=== PATIENT | male | born 1965 | race Caucasian/White ===

== ENCOUNTER 2018-03-15 10:37 | Emergency (ER) | payer OTHER ==
[~2018-03-15] VITALS: Ht 185.4 cm; Wt 166.5 kg
[2018-03-15] MEDS ORDERED: FLUCONAZOLE 100 MG TABLET. PO ONE (11:00)
[2018-03-15] MEDS ORDERED: IV NORMAL SALINE 1,000ML 1,000 ML IV ONE (11:00)
--- NOTE | 2018-03-15 11:04 | ED.ADGEN ---
Past History Past Medical History: No Pertinent History Past Surgical History: No Surgical History Smoking: Non-smoker Alcohol Use: None Drug Use: None Adult General Chief Complaint Chief Complaint Dysuria and recurrent balanitis HPI HPI The patient states he was diagnosed with balanitis and Bob in 2013. Since then, he's had recurrent episodes of balanitis last of which resolved year ago. Three weeks ago, he noted onset of progressive discharge and irritation to his foreskin of his penis. Over the last week, he's had dysuria where his urine duarte his foreskin. Denies history of diabetes. He denies any polyuria or polydipsia. He denies any fevers. Review of Systems Review of Systems Constitutional: Denies fever or chills Eyes: Denies change in visual acuity, redness, or eye pain HENT: Denies nasal congestion or sore throat Respiratory: Denies cough or shortness of breath Cardiovascular: Denies chest pain or palpitations GI: Denies abdominal pain, nausea, vomiting, bloody stools or diarrhea : With dysuria, no hematuria Musculoskeletal: Denies back pain or joint pain Integument: Denies rash or skin lesions Neurologic: Denies headache, focal weakness or sensory changes Endocrine: Denies polyuria or polydipsia All other systems were reviewed and found to be within normal limits, except as documented in this note. Current Medications Current Medications Current Medications Medications (Trade) Dose Ordered Sig/Mckay Start Time Stop Time Status Last Admin Dose Admin Fluconazole (Diflucan) 200 mg 1X ONCE 03/15/18 11:00 03/15/18 11:03 DC 03/15/18 11:26 200 MG Sodium Chloride 1,000 ml @ 1,000 mls/hr 1X ONCE 03/15/18 11:00 03/15/18 11:59 DC 03/15/18 11:26 1,000 MLS/HR Allergies Allergies Allergies Coded Allergies Type Severity Reaction Last Updated Verified Penicillins Allergy Unknown 03/15/18 Yes codeine Allergy Unknown 03/15/18 Yes Physical Exam Physical Exam Constitutional: Well developed, well nourished, no acute distress, non-toxic appearance. Morbidly obese HENT: Normocephalic, atraumatic, bilateral external ears normal, oropharynx moist, no oral exudates, nose normal. Eyes: PERRLA, EOMI, conjunctiva normal, no discharge. Neck: Normal range of motion, no tenderness, supple, no stridor. Cardiovascular:Heart rate regular rhythm, no murmur Lungs & Thorax: Bilateral breath sounds clear to auscultation Abdomen: Bowel sounds normal, soft, no tenderness, no masses, no pulsatile masses. Skin: Warm, dry, no erythema, no rash. : White discharge with cracking of the foreskin of his penis. Foreskin is retractable. No scrotal tenderness, erythema, warmth, induration or swelling. There is no swelling, erythema, warmth, induration or tenderness on the penile shaft or perineal area. Back: No tenderness, no CVA tenderness. Extremities: No tenderness, no cyanosis, no clubbing, ROM intact, no edema. Neurologic: Alert and oriented X 3, normal motor function, normal sensory function, no focal deficits noted. Psychologic: Affect normal, judgement normal, mood normal. Current Patient Data Vital Signs Vital Signs Date Time Temp Pulse Resp B/P (MAP) Pulse Ox O2 Delivery O2 Flow Rate FiO2 03/15/18 13:27 90 18 127/76 (93) 98 Room Air 03/15/18 10:37 98.3 Lab Results Laboratory Tests Test 03/15/18 11:18 03/15/18 12:10 White Blood Count 8.8 x10^3/uL (4.0-11.0) Red Blood Count 5.23 x10^6/uL (4.30-5.70) Hemoglobin 14.5 g/dL (13.0-17.5) Hematocrit 43.4 % (39.0-53.0) Mean Corpuscular Volume 83 fL (79-100) Mean Corpuscular Hemoglobin 28 pg (25-35) Mean Corpuscular Hemoglobin Concent 34 g/dL (31-37) Red Cell Distribution Width 15.4 % (11.5-14.5) H Platelet Count 260 x10^3/uL (140-400) Neutrophils (%) (Auto) 70 % (31-73) Lymphocytes (%) (Auto) 20 % (24-48) L Monocytes (%) (Auto) 4 % (0-9) Eosinophils (%) (Auto) 5 % (0-3) H Basophils (%) (Auto) 1 % (0-3) Neutrophils # (Auto) 6.2 x10^3uL (1.8-7.7) Lymphocytes # (Auto) 1.8 x10^3/uL (1.0-4.8) Monocytes # (Auto) 0.4 x10^3/uL (0.0-1.1) Eosinophils # (Auto) 0.4 x10^3/uL (0.0-0.7) Basophils # (Auto) 0.1 x10^3/uL (0.0-0.2) Sodium Level 134 mmol/L (136-145) L Potassium Level 4.1 mmol/L (3.5-5.1) Chloride Level 101 mmol/L (98-107) Carbon Dioxide Level 27 mmol/L (21-32) Anion Gap 6 (6-14) Blood Urea Nitrogen 13 mg/dL (8-26) Creatinine 1.2 mg/dL (0.7-1.3) Estimated GFR (Cockcroft-Gault) 62.9 BUN/Creatinine Ratio 11 (6-20) Glucose Level 249 mg/dL (70-99) H Calcium Level 8.5 mg/dL (8.5-10.1) Total Bilirubin 0.5 mg/dL (0.2-1.0) Aspartate Amino Transferase (AST) 32 U/L (15-37) Alanine Aminotransferase (ALT) 57 U/L (16-63) Alkaline Phosphatase 109 U/L (46-116) Total Protein 6.7 g/dL (6.4-8.2) Albumin 3.2 g/dL (3.4-5.0) L Albumin/Globulin Ratio 0.9 (1.0-1.7) L Urine Collection Type Unknown Urine Color Yellow Urine Clarity Clear Urine pH 5.5 Urine Specific Doss 1.020 Urine Protein Neg (NEG-TRACE) Urine Glucose (UA) >=1000 mg/dL (NEG) Urine Ketones (Stick) Neg mg/dL (NEG) Urine Blood Neg (NEG) Urine Nitrite Neg (NEG) Urine Bilirubin Neg (NEG) Urine Urobilinogen Dipstick 0.2 mg/dL (0.2 mg/dL) Urine Leukocyte Esterase Neg (NEG) Urine RBC Occ /HPF (0-2) Urine WBC Occ /HPF (0-4) Urine Squamous Epithelial Cells Few /LPF Urine Bacteria 0 /HPF (0-FEW) Urine Mucus Slight /LPF EKG EKG [] Radiology/Procedures Radiology/Procedures [] Course & Med Decision Making Course & Med Decision Making Emergency Department course: Patient presents with foreskin irritation with dysuria DDx- balanitis, cellulitis, STI, UTI The patient was tachycardic in the ED. Exam consistent with balanitis. Labs remarkable for hyperglycemia. Tachycardia resolved after IV Ns hydration. Patient was started on metformin for likely diabetes. Patient was given fluconazole for balanitis. I advised the patient to follow-up with PCP and Urology for further evaluation. Patient was gien prescriptions for clotrimazole and metformin. Patient advised to return to the ED if he develops fevers, pain, drainage, chest pain or SOB. Final Impression Final Impression Clinical Impression: Balanitis Diabetes Dragon Disclaimer Dragon Disclaimer This electronic medical record was generated, in whole or in part, using a voice recognition dictation system. Departure Time of Disposition: 12:52 Disposition: 01 HOME, SELF-CARE Diagnosis: Balantitis, hyperglycemia Condition: IMPROVED Patient Instructions: Balanitis, Balanitis and Foreskin Hygiene, Hyperglycemia Referrals: CHACHO VALLE MD Follow-up tomorrow for further evaluation CHERYLE WILSON MD Follow-up tomorrow for further evaluation Additional Instructions: Follow-up with her primary doctor for further medications tomorrow. Follow-up with urology referral for balanitis. Clotrimazole and metformin as prescribed If he develop worse pain, fevers, swelling, redness, discharged, vomiting, shortness of breath return to the emergency department immediately Prescriptions fluconazole, Metformin KAMALA MAKI MD Mar 15, 2018 11:04
[2018-03-15 11:30] LABS: BASO # 0.1 x10^3/uL (0.0-0.2); BASO % 1 % (0-3); EOS # 0.4 x10^3/uL (0.0-0.7); EOS % 5 % (0-3); HEMATOCRIT 43.4 % (39.0-53.0); HEMOGLOBIN 14.5 g/dL (13.0-17.5); LYMPH # 1.8 x10^3/uL (1.0-4.8); LYMPH % 20 % (24-48); MEAN CORPUSCULAR HEMOGLOBIN 28 pg (25-35); MEAN CORPUSCULAR HGB CONC 34 g/dL (31-37); MEAN CORPUSCULAR VOLUME 83 fL (79-100); MONO # 0.4 x10^3/uL (0.0-1.1); MONO % 4 % (0-9); NEUT # 6.2 x10^3uL (1.8-7.7); NEUT % 70 % (31-73); PLATELET COUNT 260 x10^3/uL (140-400); RED BLOOD COUNT 5.23 x10^6/uL (4.30-5.70); RED CELL DISTRIBUTION WIDTH 15.4 % (11.5-14.5); WHITE BLOOD COUNT 8.8 x10^3/uL (4.0-11.0)
[2018-03-15 11:44] LABS: ALBUMIN 3.2 g/dL (3.4-5.0); ALBUMIN/GLOBULIN RATIO 0.9 (1.0-1.7); CALCIUM 8.5 mg/dL (8.5-10.1); CREATININE 1.2 mg/dL (0.7-1.3); GFR 62.9; POTASSIUM 4.1 mmol/L (3.5-5.1); TOTAL BILIRUBIN 0.5 mg/dL (0.2-1.0); TOTAL PROTEIN 6.7 g/dL (6.4-8.2)
[2018-03-15 12:27] LABS: BACTERIA,URINE 0 /HPF (0-FEW); BILIRUBIN,URINE NEG (NEG); CLARITY,URINE CLEAR; COLOR,URINE YELLOW; GLUCOSE,URINE >=1000 mg/dL (NEG); NITRITE,URINE NEG (NEG); RBC,URINE OCC /HPF (0-2); SQUAMOUS EPITHELIAL CELL,UR FEW /LPF; UROBILINOGEN,URINE 0.2 mg/dL (0.2 mg/dL); WBC,URINE OCC /HPF (0-4)
[2018-03-15] MEDS ORDERED: METF500T16 PO (13:04)
[2018-03-15] MEDS ORDERED: CLOT15CR4 TP (13:04)
[2018-03-15 13:27] VITALS: BP 127/76
== END 2018-03-15 13:27 | disposition home or self-care (01) ==
LOC: ER 10:37
DX: N48.1 Balanitis (principal); E11.65 Type 2 diabetes mellitus with hyperglycemia; Z88.0 Allergy status to penicillin; Z88.5 Allergy status to narcotic agent
CPT/HCPCS: 36415; 80053; 81001; 85025; 96360; 96361; 99285-25; J7030

== ENCOUNTER → 2018-04-13 | Outpatient (CLI) | payer OTHER ==
[2018-03-15 13:27] VITALS: BP 127/76
[~2018-04-13] MED LIST: CLOT15CR4 TP; METF500T16 PO
--- NOTE | 2018-04-13 15:32 | RAD ---
3 views of the left ankle without comparison for chronic left ankle pain. FINDINGS: There is no fracture, dislocation, or acute osseous abnormality identified. 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 No radiopaque foreign bodies are seen. A moderate calcaneal enthesophyte is present as is a small calcaneal bone spur. IMPRESSION: 1. No fracture or acute osseous abnormality of the left ankle. Electronically signed by: Gerard Wilson MD (04/13/2018 3:29 PM) [id number]
== END | disposition home or self-care (01) ==
LOC: RAD 13:34
PROVIDERS: ATTEND Orthopaedic Surgery Sports Medicine
DX: M77.32 Calcaneal spur, left foot (principal)
CPT/HCPCS: 73610

== ENCOUNTER → 2018-04-21 | Outpatient (CLI) | payer OTHER ==
--- NOTE | 2018-04-21 09:50 | CARD ---
MR#: [id number] Date of Study: 04/21/2018 Ordering Physician: MARTHA WATSON, Referring Physician: MARTHA WATSON Tech: Brenda Louise RDCS APPROVED REPORT EXAM: Two-dimensional and M-mode echocardiogram with Doppler and color Doppler. Other Information Quality : Technically LimitedHR: 103bpm Rhythm : TachycardiaTechnically limited study due to body habitus. INDICATION Dyspnea 2D DIMENSIONS RVDd3.3 (2.9-3.5cm)Left Atrium(2D)3.8 (1.6-4.0cm) IVSd1.1 (0.7-1.1cm)Aortic Root(2D)3.4 (2.0-3.7cm) LVDd5.3 (3.9-5.9cm)LVOT Diameter2.5 (1.8-2.4cm) PWd0.9 (0.7-1.1cm)LVDs3.8 (2.5-4.0cm) FS (%) 28.7 %SV74.2 ml LVEF(%)54.8 (>50%) M-Mode DIMENSIONS Left Atrium(MM)4.02 (2.5-4.0cm)Aortic Root3.90 (2.2-3.7cm) Aortic Valve AoV Peak Bassam.146.4cm/sAoV VTI21.4cm AO Peak GR.8.6mmHgLVOT Peak Bassam.100.9cm/s LVOT VTI 14.61cmAO Mean GR.5mmHg ISH (VMAX)3.71ak5TYD (VTI)3.35cm2 Mitral Valve MV E Zgidndif80.8cm/sMV E Peak Gr.5mmHg MV DECEL [id number] A Sgdrzgkg53.6cm/s MV E Mean Gr.2mmHgE/A Ratio0.8 Pulmonary Valve PV Peak Yvyfgfoz973.0cm/sPV Peak Grad.6mmHg LEFT VENTRICLE The left ventricle is normal size. There is borderline concentric left ventricular hypertrophy. The l eft ventricular systolic function is normal. The Ejection Fraction is 55-60%. There is normal LV segm ental wall motion. The left ventricular diastolic function and filling is normal for age. RIGHT VENTRICLE The right ventricle is normal size. There is normal right ventricular wall thickness. The right ventr icular systolic function is normal. ATRIA The left atrium size is normal. The right atrium size is normal. The interatrial septum is intact wit h no evidence for an atrial septal defect or patent foramen ovale as noted on 2-D or Doppler imaging. AORTIC VALVE The aortic valve is probably trileaflet. The aortic valve is normal in structure and function. Dopple r and Color Flow revealed no significant aortic regurgitation. There is no significant aortic valvula r stenosis. MITRAL VALVE The mitral valve is normal in structure and function. There is no evidence of mitral valve prolapse. There is no mitral valve stenosis. Doppler and Color Flow revealed no mitral valve regurgitation note d. TRICUSPID VALVE The tricuspid valve is normal in structure and function. Doppler and Color Flow revealed no tricuspid valve regurgitation noted. There is no tricuspid valve prolapse or vegetation. There is no tricuspid valve stenosis. PULMONIC VALVE Not well visualized. GREAT VESSELS The aortic root is normal in size. The ascending aorta is normal in size. PERICARDIAL EFFUSION There is no evidence of significant pericardial effusion Critical Notification Critical Value: No <Conclusion> Technically difficult study. The left ventricular systolic function is normal. The Ejection Fraction is 55-60%. There is normal LV segmental wall motion. No significant valvular abnormalities. There is no evidence of significant pericardial effusion Signed by : Radu Beltre, Electronically Approved : 04/21/2018 09:49:31
--- NOTE | 2018-04-21 17:49 | RAD ---
VENOUS REFLUX BILATERAL Clinical Indication: DR NOTED BLE EDEMA, OBESITY Procedure: Color flow Doppler, spectral Doppler analysis, and 2D images are obtained with and without patient performing Valsalva maneuver of the superficial veins of both lower extremities. Findings: No significant reflux is demonstrated in the right or left greater or lesser saphenous veins. Right greater saphenous vein diameter is 8 mm. Right lesser saphenous vein diameter is 3 mm. Left greater saphenous vein diameter 7 mm. Left lesser saphenous vein diameters 5 mm. IMPRESSION: No significant saphenous vein reflux is identified. Electronically signed by: Davion Naidu MD (04/21/2018 5:46 PM) [id number]
== END | disposition home or self-care (01) ==
LOC: ECHO 07:55
PROVIDERS: ATTEND Neuromusculoskeletal Medicine & OMM
DX: R06.09 Other forms of dyspnea (principal); R60.0 Localized edema; E66.9 Obesity, unspecified; R00.0 Tachycardia, unspecified
CPT/HCPCS: 93306; 93970

== ENCOUNTER → 2018-05-07 | Outpatient (CLI) | payer OTHER ==
[~2018-05-07] MED LIST changes: +BARIUM SULFATE 2.1% 450 ML SUSP PO ONE; +IOHEXOL 240 MG/ML 50ML VIAL. ONE; +IOHEXOL 300 MG/ML 75 ML VIAL. IV ONE
[2018-05-07 08:47] LABS: GFR 77.6
--- NOTE | 2018-05-07 10:05 | RAD ---
PQRS Compliance statement: One or more of the following individualized dose reduction techniques were utilized for this examination: 1. Automated exposure control. 2. Adjustment of the mA and/or kV according to patient size. 3. Use of iterative reconstruction technique. Indication:MASS SEEN ON COLONOSCOPY. TECHNIQUE: CT abdomen and pelvis with IV contrast with multiplanar reformats. COMPARISON: None FINDINGS: Heart is normal in size. No pericardial or pleural effusion. Clear lung bases. Diffuse hepatic steatosis without focal hepatic lesion. Spleen, gallbladder, pancreas, adrenals and kidneys are within normal limits. No enlarged retroperitoneal or pelvic adenopathy. No bowel obstruction. There is circumferential nodular thickening of the colon in the region of splenic flexure with wall thickening approximately measuring 1.4 cm. No pericolonic large lymph nodes are seen or pericolonic inflammatory changes seen. The prostate and seminal vesicles show no large mass. Urinary bladder within normal limits. No pneumoperitoneum. No suspicious bony lesion. IMPRESSION: 1. Short segment circumferential wall thickening of the colon the region of splenic flexure. Clinically correlate with colonoscopy findings. 2. No evidence of metastatic disease. 3. Hepatic steatosis. Electronically signed by: Dillon Hunter DO (05/07/2018 10:01 AM) [id number]
== END | disposition home or self-care (01) ==
LOC: CT 07:33
PROVIDERS: ATTEND Internal Medicine Gastroenterology
DX: K76.0 Fatty (change of) liver, not elsewhere classified (principal)
CPT/HCPCS: 36415; 74177; 82565; 84520; Q9967; Q9966

== ENCOUNTER → 2018-07-17 | Outpatient (CLI) | payer OTHER ==
[~2018-07-17] MED LIST changes: -BARIUM SULFATE 2.1% 450 ML SUSP PO ONE
[2018-07-17] MEDS: IOHEXOL 240 MG/ML 50ML VIAL. PO ONE (12:36)
--- NOTE | 2018-07-17 16:35 | RAD ---
CT CHEST ABD PELVIS W/CONTRAST Indication: Colon cancer, colon resection Technique: Postcontrast CT imaging was performed of the chest, abdomen, pelvis, multiplanar reconstruction images submitted. Oral contrast was also given. One or more of the following individualized dose reduction techniques were utilized for this examination: 1. Automated exposure control 2. Adjustment of the mA and/or kV according to patient size 3. Use of iterative reconstruction technique. Comparison: None CHEST: Findings: There is azygos fissure. There is a tiny 2-3 mm right upper lobe subpleural nodule axial image 18 series 5. There is no pleural or pericardial effusion, pneumothorax, infiltrate, significant chest lymphadenopathy. Thoracic aortic caliber is within normal limits, no intraluminal flap. There is no abnormality of the visualized thyroid gland. No suspicious bone lesion is identified. IMPRESSION: 1. There is a tiny 2 to 3 mm subpleural right upper lobe nodule, no suspicious pulmonary nodularity identified. Optional 12 month follow-up could be performed as per revised Fleischner guidelines. Abdomen pelvis: FINDINGS: Gallbladder is present without obvious intraluminal abnormality by CT. No focal abnormality is identified of the liver, spleen, pancreas. There is no adrenal nodularity. Both kidneys enhance, no hydronephrosis.There is some hazy and strandy density of the fat adjacent to the splenic flexure of the colon extending to the left mesenteric fat best seen on axial images 47 through 63, associated small likely nodes in this region with the largest of these about 0.6 short axis dimension. Bowel is not dilated. There is no free fluid or free fluid air. There is mild distention of the urinary bladder. There is multilevel vacuum disc disease throughout lumbar spine, also multilevel facet degenerative change. There is likely at least mild spinal stenosis such as L3-4 and L4-5. There is multilevel lumbar neural foramina compromise greatest on the right L3-4 and L4-5. There is mild levoscoliosis. There is mild right lateral subluxation L2 relative L3. IMPRESSION: 1. There is nonspecific hazy and strandy density of the fat adjacent to the splenic flexure of the colon with some small nodes in this region. 2. No focal liver or adrenal lesion is identified. Electronically signed by: Jaylen Duran MD (07/17/2018 4:30 PM) [id number]
== END | disposition home or self-care (01) ==
LOC: CT 09:53
PROVIDERS: ATTEND Internal Medicine Hematology & Oncology
DX: Z08 Encounter for follow-up examination after completed treatment for malignant neoplasm (principal); S33.120A Subluxation of L2/L3 lumbar vertebra, initial encounter; Q33.1 Accessory lobe of lung; M48.061 Spinal stenosis, lumbar region without neurogenic claudication; Z85.038 Personal history of other malignant neoplasm of large intestine; X58.XXXA Exposure to other specified factors, initial encounter; Y93.89 Activity, other specified; Y92.89 Other specified places as the place of occurrence of the external cause; Y99.8 Other external cause status
CPT/HCPCS: 71260; 74177; Q9966; Q9967

== ENCOUNTER → 2018-10-19 | Outpatient (CLI) | payer OTHER ==
[~2018-10-19] MED LIST changes: -IOHEXOL 240 MG/ML 50ML VIAL. ONE; +IOHEXOL 240 MG/ML 50ML VIAL. PO ONE
--- NOTE | 2018-10-19 16:38 | RAD ---
CT CHEST ABD PELVIS W/CONTRAST Indication: Colon cancer, elevated CEA Technique: Postcontrast CT imaging was performed of the chest, abdomen, pelvis, multiplanar reconstruction images submitted. One or more of the following individualized dose reduction techniques were utilized for this examination: 1. Automated exposure control 2. Adjustment of the mA and/or kV according to patient size 3. Use of iterative reconstruction technique. Comparison: July 17, 2018 exams CHEST: Findings: There is no new suspicious pulmonary nodularity or chest lymphadenopathy. Tiny 0.3 cm right upper lobe subpleural nodule image 13 series 5 is stable. There is again azygos fissure. There is appearance of some density in the anterior thoracic aortic lumen on multiple images although there is some motion artifact in this region, no dissection flap seen at level of the aortic arch. There is no pericardial fluid. There is no pleural effusion, pneumothorax, or infiltrate. No new bony destructive lesion is identified. IMPRESSION: 1. There is no new pulmonary nodularity or lymphadenopathy. Tiny 0.3 cm right upper lobe subpleural nodule is stable. 2. Appearance of eccentric density in the anterior thoracic aortic lumen is more likely to be artifactual rather than dissection flap and thrombus in the absence of clinical symptoms, especially as no dissection flap seen at level of the aortic arch and there is no pericardial fluid. However if there are symptoms such as chest pain, chest CTA to include precontrast images is recommended. Abdomen pelvis: FINDINGS: There is likely diffuse hepatic steatosis. No new focal abnormality is identified of the pancreas or spleen. As seen on axial image 9 series 6, coronal image 68 series 8, sagittal image 57 series 12, there is a subtle focus of relative enhancement of the anterior left lateral lobe of the liver, difficult to measure margin although somewhat convex margin estimated about 1.84 cm in size. There is no significant adrenal nodularity. Both kidneys enhance, no hydronephrosis. Bowel is not significantly dilated. There is no free fluid or free air. No new significantly enlarged or necrotic nodes are identified. There is again hazy and strandy change of the fat near the splenic flexure of the colon located anterior to the spleen and in the anterior left mesenteric fat overall unchanged in appearance. There is multilevel lumbar degenerative disc disease and vacuum phenomenon throughout lumbar spine, also multilevel facet degenerative change. There is spondylosis greatest L1-2, L3-4, L5-S1, likely at least mild lateral recess stenosis greater on the right at L3-4. There is neural foramina compromise greatest bilaterally at L5-S1 and on the right at L4-L5. There is a shallow fat-containing ventral hernia to the left of the midline as seen on image 46 series 6 now present, neck about 2.5 cm, no internal bowel. IMPRESSION: 1. There is a subtle focus of enhancement of the left lobe of the liver, mass possible better evaluated by MRI. There is similar nonspecific mild stranding change of the fat adjacent to the splenic flexure of the colon, no new significant lymphadenopathy identified. Findings were discussed by telephone with Dr. Donaldson 10/19/2018 at 1635. Electronically signed by: Jaylen Duran MD (10/19/2018 4:35 PM) [id number]
== END | disposition home or self-care (01) ==
LOC: CT 11:10
PROVIDERS: ATTEND Internal Medicine Hematology & Oncology
DX: C18.9 Malignant neoplasm of colon, unspecified (principal); K76.0 Fatty (change of) liver, not elsewhere classified; R91.1 Solitary pulmonary nodule; K43.9 Ventral hernia without obstruction or gangrene; M51.36 Other intervertebral disc degeneration, lumbar region; M47.816 Spondylosis without myelopathy or radiculopathy, lumbar region
CPT/HCPCS: 71260; 74177; Q9966; Q9967